=== PATIENT | male | born 1970 | race Caucasian/White ===

== ENCOUNTER 2016-09-20 09:12 | Emergency (ER) ==
[2016-09-20 09:22] VITALS: BP 163/100
--- NOTE | 2016-09-20 10:05 | Diag Imaging Result Document ---
PROCEDURE NAME: SHOULDER-RIGHT - 09/20/2016 X-RAY RIGHT SHOULDER 3 VIEWS, 09/20/2016: COMPARISON: None. FINDINGS: Bones are intact and normally aligned. Joint spaces and soft tissues are clear. IMPRESSION: Negative exam.
--- NOTE | 2016-09-20 10:28 | PROVIDER DOCUMENTATION ---
HPI-Musculoskeletal Pain/Inj - GENERAL Chief Complaint: Shoulder Pain Stated Complaint: SHOULDER PAIN Time Seen by Provider: 09/20/16 10:16 - HX OF PRESENT ILLNESS-MUSKULOSKELTAL Nature of Presenting Problem: 46 yom that has had increasing pain x 2 months to right shoulder. pain continued to get worse over that past few days. No known injury to shoulder. Quality of Pain: reports: aching Severity in ED: mild Onset/Duration: other Timing: getting worse Modifying Factors: improves with: nothing Any recent injury?: No Locality of Occurance: Home Similar Symptoms Previously?: No Recently seen or treated by another doctor?: No - UPPER EXTREMITY PAIN/INJURY Extremities Pain Location: shoulder: right Context / Method of Injury: reports: unknown Associated Symptoms: reports: muscle spasms Review of Systems - Adult - REVIEW OF SYSTEMS - ADULT Constitutional: reports: see HPI. denies: no symptoms reported, chills, fever, fatique, night sweats, weight gain, weight loss, other Eyes: reports: no symptoms reported. denies: see HPI, discharge, dry eyes, decreased vision, blurred vision, double vision, eye pain, redness, other Ears, Nose, Mouth & Throat: reports: no symptoms reported. denies: see HPI, ear discharge, ear pain, hearing loss, tinnitus, epistaxis, sinus problem, nose pain, loose teeth, mouth/dental pain, mouth swelling, hoarseness, throat pain, throat swelling, other Cardiovascular: reports: no symptoms reported. denies: see HPI, chest pain, edema, heart murmur, irregular heart rate, orthopnea, palpitations, poor circulation, PND, syncope, other Respiratory: reports: no symptoms reported. denies: see HPI, chronic cough, cough, dyspnea on exertion, excessive sputum production, hemoptysis, pleurisy, shortness of breath, wheezing, other Gastrointestinal: reports: no symptoms reported Genitourinary: reports: no symptoms reported. denies: see HPI, dysuria, discharge, frequency, flank pain, frequent UTI's, hematuria, hesitency, incontinence, urinary retention, urgency, other Musculoskeletal: reports: see HPI, joint pain Integumentary: reports: no symptoms reported. denies: see HPI, hives, hair loss , itching, mole changes, nail changes, rash, skin sores/ulcer, skin thickening, other Neurological: reports: no symptoms reported. denies: see HPI, ataxia, dizziness /vertigo, headache/migraines, loss of balance, numbness, paresthesia, seizure, slurred speech, syncope, tremors, other All Other Systems: Reviewed and Negative Past History - Adult - PAST MEDICAL HISTORY-ADULT Review of Records: reports: Old Records Reviewed, Nursing Assessment Review, Medications Reviewed, Social history reviewed & non-contributory. Major Childhood Illnesses: reports: denies history - PRIOR SURGERIES/PROCEDURES Surgical/Procedure History: reports: none - IMMUNIZATION STATUS Childhood Immunizations: See Nurse Assessment Flu Vaccine: See Nurse Assessment Physical Exam-Injury Related - Physical Exam-Injury Related Initial Vital Signs Reviewed: Yes General Appearance: appears well, alert, no apparent distress Eyes: PERRL/EOMI, pink conjunctivae Head, Ears, Nose, Mouth & Throat: normocephalic/atraumatic, moist mucous membranes, normal ENT inspection, TMs normal, pharynx normal. negative: angioedema, dental decay, hearing deficit, pharyngeal erythema, tonsillar exudate, TM abnormal, TM obscurred by cerumen, frontal tenderness, maxillary tenderness, other Neck: non-tender, full range of motion, supple, normal inspection. negative: pain with axial compression, Brudzinski's sign, carotid bruit, C-spine tenderness, decresed ROM, ecchymosis, limited range of motion, lymphadenopathy, muscle spasm, nexus criteria negative, pain on movement, subcutaneous emphysema , swelling, trachial deviation, tender lateral, tender midline, thyromegaly, vertebral point tenderness, other Respiratory: chest non-tender, lungs clear, normal breath sounds, no pleuratic chest pain, no respiratory distress, no accessory muscle use. negative: respiratory distress, decreased breath sounds, accessory muscle use, crackles, rales, rhonchi, stridor, wheezing, dull on percussion, prolonged expiration, pain on inspiration, pleural rub, retractions, splinting, decreased rate, increased rate, crepitus, ecchymosis, flail chest, palpable fracture, paradoxical movements, rib tenderness, seat belt bruising, tenderness, other Cardiovascular: normal peripheral pulses, regular rate, rhythm, no edema, no gallop, no JVD, no murmur. negative: JVD, bradycardia, tachycardia, diastolic murmur, systolic murmur, gallop/S3, gallop/S4, extra beats, friction rub, irregularly irregular, PMI displaced laterally, other Abdominal Exam: normal bowel sounds, non tender, soft, no organomegaly, no pulsatile mass. negative: abdominal bruit, abnormal bowel sounds, distended, guarding, rigid, rebound, tenderness, hernia, mass, hepatomegaly, spleenomegaly , McBurney's point tenderness, Delvalle's sign, obturator sign, prominent aortic pulsations, psoas, Rovsing's sign, other Male Genitalia: deferred Lymphatic: no adenopathy. negative: axilla node tender, cervical node tenderness, inguinal node tender, enlargement, striations, streaking, other Back Exam: normal inspection, no CVA tenderness, no vertebral tenderness. negative: CVA tenderness, decreased range of motion, ecchymosis, kyphosis, lordosis, muscle spasm, scoliosis, swelling, vertebral tenderness, other Extremity: normal inspection, no pedal edema, no calf tenderness, normal capillary refill, tenderness (Left shoulder) Integumentary: normal color, warm/dry. negative: blanching, cyanosis, diaphoresis, decubitus, ecchymosis, embolic lesions, erythema, signs of IVDA, jaundice, mottled, pallor, petechiae, purpura, rash, swelling, tenderness, warm , zoster-like rash, abrasion, ashen, blistered, contusion(s), gutierrez red, crepitus, laceration, puncture wound(s), white, other Neurologic: grossly normal, no motor/sensory deficits. negative: wildlife ecology professor II-XII nml as tested, abnormal cerebellar tests, abnormal wildlife ecology professor II-XII, abnormal gait, aphasia, EOM palsy, facial droop, focal weakness, motor weakness, sensory deficit, negative romberg's sign, positive romberg's sign, other Psych/Mental Status: normal mood/affect, normal thought content, normal thought process, oriented x 3 - Glascow Coma Score Best Eye Response (Collin): (4) open spontaneously Best Verbal Response (Grants): (5) oriented Best Motor Response (Grants): (6) obeys commands Collin Total: 15 Progress - XRAY 1 XRAY Study: Shoulder Impression: Normal (Normal per radiologist.) Departure - Departure Time of Disposition Order: 10:26 DIAGNOSIS: Right shoulder strain Qualifiers: Encounter type: initial encounter Qualified Code(s): S46.911A - Strain of unspecified muscle, fascia and tendon at shoulder and upper arm level, right arm , initial encounter Disposition: HOME 01 Certified Medical Emergency: Emergent Condition: Stable Additional Instructions: Follow up with ortho as instructed for further evaluation. ED Follow Up Instructions: You have been treated by a care provider in the Emergency Department. These instructions are being provided to you so you can have an understanding of how to care for yourself upon discharge. Upon discharge from the Emergency Department, you are responsible for making arrangements for follow-up care by a physician of your choice. Take all prescribed medications as directed. Return to the Emergency Department immediately for any new or worsening symptoms. You may call the Physician Referral phone number at [phone] to obtain a list of Physicians who are taking new patients. Prescriptions: Ketorolac [Toradol] 10 mg PO Q8H PRN PRN #14 tablet PRN Reason: Pain Ketorolac [Toradol] 10 mg PO Q8H PRN PRN #14 tablet PRN Reason: Pain Referrals: Cat Chavarria MD [Primary Care Provider] - Yared Bird MD [STAFF PHYSICIAN] - Forms: Return to School/Parent Work Instructions: Muscle Strain, [id number], Ketorolac tablets Attestation - Physician/ ABI Attestation Patient care was provided by Advanced Practice Provider:: Yes Advanced Practice Provider:: Dima Webb Advanced Practice Provider documentation review:: The Mid-level provider documentation, treatment plan and medical decision making was reviewed by the physician who agrees with all treatment and medical decision making by the MLP.
== END 2016-09-20 10:34 | disposition home or self-care (01) ==
LOC: P.ED 09:12
DX: S46.911A Strain of unspecified muscle, fascia and tendon at shoulder and upper arm level, right arm, initial encounter (principal); M25.511 Pain in right shoulder; M62.838 Other muscle spasm
CPT/HCPCS: 99283